=== PATIENT | female | born 1940 | race Caucasian/White ===

== ENCOUNTER → 2024-09-24 14:10 | Outpatient (REF) | payer MEDICARE, SELFPAY | LOC: HWRAD 14:10 | PROVIDERS: ATTENDING PHYSICIAN Family Medicine | DX: M85.88 Other specified disorders of bone density and structure, other site (principal); M85.89 Other specified disorders of bone density and structure, multiple sites | CPT/HCPCS: 77080 ==

== ENCOUNTER 2025-02-26 00:55 | Inpatient (IN) | payer MEDICARE, SELFPAY ==
[2025-02-25] VITALS (7 sets, daily range): BP systolic 103–122; BP diastolic 48–62; BMI 22.6
--- NOTE | 2025-02-25 17:39 | ED.GENMED ---
ED Provider Triage
<Violet Aguirre PA-C - Last Filed: 02/25/25 17:41>
-
Patient seen by provider in Triage?: Seen in Triage
Attestation: A medical screening examination has been initiated by a qualified medical provider. Based on the assessment performed at this time, it has been determined that an emergent medical condition may exist and the patient has been informed
that further medical evaluation and possible additional diagnostic testing may be needed.
HPI: 84yoF here with n/v and abd pain. Also more weak than normal. Grandson reports coffee ground emesis. Tried ODT Zofran without relief. Hx of liver cancer. Follows with [facility]. On Keytruda.
GENERAL: Alert , in no apparent distress
EYE: No visual abnormalities.
NECK: Trachea midline
ENT: No visible abnormalities.
LUNGS: No acute respiratory distress
NEUROLOGICAL: Alert and oriented
SKIN: Skin intact. No visible changes.
MUSCULOSKELETAL: Moving extremities normally
PSYCH: Normal and appropriate interaction.
This is a medical evaluation conducted in person to initiate diagnostic evaluation and provide initial therapeutics. Please see further documentation by the treating clinician.
Basic labs ordered from triage. She has a port that will need to be accessed. Will defer CT from triage as she will be unable to tolerate PO contrast without IV antiemetics.
History of Present Illness
<Violet Aguirre PA-C - Last Filed: 02/25/25 17:41>
General
Chief Complaint: Abdominal Symptoms
Time Seen by Provider: 02/25/25 18:07
<Arturo Magana MD - Last Filed: 02/25/25 22:48>
General
Source: patient and family
Exam Limitations: none
Nursing documentation reviewed up to this point in time: agreed with
History of Present Illness
History of Present Illness:
84-year-old female with past medical history of metastatic breast cancer with mets to the liver presents to the emergency department with her daughter for evaluation of abdominal pain with nausea and vomiting. Patient reports that she has chronic
pain related to her liver metastasis that over the past few days has gotten worse. Since Tuesday she has had severe nausea and has had multiple episodes of nonbloody vomiting. Denies any diarrhea or constipation. She denies any fever or chills.
She denies headache or neck pain. She follows at [facility] for cancer treatment.
Review of Systems
<Arturo Magana MD - Last Filed: 02/25/25 22:48>
Review of Systems
All Other Systems: ROS reviewed and negative except as documented in HPI and ROS
Constitutional: Denies fever
Respiratory: Denies trouble breathing
Cardiac: Denies chest pain
ABD/GI: Reports abdominal pain, nausea and vomiting; Denies diarrhea
: Denies flank pain
Musculoskeletal: Denies neck pain or back pain
Neurological: Denies dizzy or headache
Phy Exam
<Arturo Magana MD - Last Filed: 02/25/25 22:48>
Physical Exam
Physical Exam:
General: Awake, alert, oriented x3; chronically ill-appearing but in no acute distress
Head: Normocephalic, atraumatic
Eyes: Conjunctiva normal, sclera anicteric
Throat: Airway intact, dry mucous membranes
Neck: Trachea midline, supple without meningismus
Lungs: Clear to auscultation bilaterally, no wheezing, rales, rhonchi
Heart: Regular rate and rhythm, no murmurs, gallops, or rubs
Abd: Soft, non distended, tender to palpation right upper abdomen and epigastric
Neuro: No gross deficits
Skin: Warm and dry, no jaundice noted
Extremities: Warm and well-perfused
Scores
<Arturo Magana MD - Last Filed: 02/25/25 22:48>
Heart Failure Risk
Heart Failure Risk Score: Not Applicable
Heart Score for Chest Pain Patients
STEMI patient?: Not applicable
Withdrawal Assessment of Alcohol
Withdrawal Assessment Completed?: Not applicable
Course
<Violet Aguirre PA-C - Last Filed: 02/25/25 17:41>
Orders/Labs/Results
Orders:
Orders
02/25/25 17:39
Complete Blood Count/With Diff Urgent
Comprehensive Metabolic Panel Urgent
Lactate Level [Lactic Acid] Q4H
Lipase Urgent
02/25/25 18:16
CT Abd/pelvis W Iv Cont Urgent
Comment:
Reason For Exam: abd pain, nausea, vomiting
0.9% Sodium Chloride 1000 ml [Nss] 1,000 ml IV BOLUS
02/25/25 18:20
Morphine Sulfate 4 mg IV NOW STA
Ondansetron Injectable [Zofran] 4 mg IV NOW STA
02/25/25 18:50
CR Chest Portable - 1 View Urgent
Comment:
Reason For Exam: port check
Reason Study Needs to be Portable: Unable to Transport
02/25/25 22:35
HYDROmorphone [Dilaudid] 0.5 mg IV NOW STA
02/25/25 22:36
0.9% Sodium Chloride 1000 ml [Nss] 1,000 ml IV BOLUS
Abnormal Lab Results
02/25/25 02/25/25
17:39 19:53
WBC 13.4 H 10^3/uL
(4.8-10.8)
RBC 2.74 L 10^6/uL
(4.20-5.40)
Hgb 8.1 L g/dL
(12.0-16.0)
Hct 24.9 L %
(37.0-47.0)
MCHC 32.5 L g/dL
(33.0-37.0)
RDW 22.4 H %
(11.5-14.5)
Abs Immat Gran (auto) 0.4 H 10^3/uL
(0-0.05)
Absolute Neuts (auto) 11.2 H 10^3/uL
(1.4-6.5)
Absolute Lymphs (auto) 0.6 L 10^3/uL
(1.2-3.4)
Absolute Monos (auto) 1.2 H 10^3/uL
(0.1-0.6)
Immature Gran % 2.8 H %
(0-0.5)
Neutrophils % 83.6 H %
(42.2-75.2)
Lymphocytes % 4.2 L %
(20.5-51.1)
Carbon Dioxide 20 L mmol/L
(22-30)
BUN 35 H mg/dl
(7-17)
Creatinine 1.6 H mg/dL
(0.6-1.0)
Glucose 410 H mg/dl
(70-99)
Calcium 8.2 L mg/dl
(8.4-10.2)
AST 77 H U/L
(14-36)
Alkaline Phosphatase 518 H U/L
(38-126)
Total Protein 5.3 L g/dl
(6.3-8.2)
Albumin 2.9 L g/dl
(3.5-5.0)
Lipase 638 H U/L
(23-300)
POC Glucose 405 H mg/dl
(70-99)
02/25/25 17:39
02/25/25 17:39
Vital Signs
Initial and Last Documented VS:
Initial Vital Signs
Temp Pulse Resp BP Pulse Ox
36.4 C 99 20 106/51 97
02/25/25 17:25 02/25/25 17:25 02/25/25 17:25 02/25/25 17:25 02/25/25 17:25
Last Documented Vital Signs
Temp Pulse Resp BP Pulse Ox
36.4 C 90 16 112/62 91
02/25/25 17:25 02/25/25 21:45 02/25/25 21:45 02/25/25 21:20 02/25/25 20:30
<Arturo Magana MD - Last Filed: 02/25/25 22:48>
Orders/Labs/Results
Orders:
Orders
02/25/25 17:39
Complete Blood Count/With Diff Urgent
Comprehensive Metabolic Panel Urgent
Lactate Level [Lactic Acid] Q4H
Lipase Urgent
02/25/25 18:16
CT Abd/pelvis W Iv Cont Urgent
Comment:
Reason For Exam: abd pain, nausea, vomiting
0.9% Sodium Chloride 1000 ml [Nss] 1,000 ml IV BOLUS
02/25/25 18:20
Morphine Sulfate 4 mg IV NOW STA
Ondansetron Injectable [Zofran] 4 mg IV NOW STA
02/25/25 18:50
CR Chest Portable - 1 View Urgent
Comment:
Reason For Exam: port check
Reason Study Needs to be Portable: Unable to Transport
02/25/25 22:35
HYDROmorphone [Dilaudid] 0.5 mg IV NOW STA
02/25/25 22:36
0.9% Sodium Chloride 1000 ml [Nss] 1,000 ml IV BOLUS
Abnormal Lab Results
02/25/25 02/25/25
17:39 19:53
WBC 13.4 H 10^3/uL
(4.8-10.8)
RBC 2.74 L 10^6/uL
(4.20-5.40)
Hgb 8.1 L g/dL
(12.0-16.0)
Hct 24.9 L %
(37.0-47.0)
MCHC 32.5 L g/dL
(33.0-37.0)
RDW 22.4 H %
(11.5-14.5)
Abs Immat Gran (auto) 0.4 H 10^3/uL
(0-0.05)
Absolute Neuts (auto) 11.2 H 10^3/uL
(1.4-6.5)
Absolute Lymphs (auto) 0.6 L 10^3/uL
(1.2-3.4)
Absolute Monos (auto) 1.2 H 10^3/uL
(0.1-0.6)
Immature Gran % 2.8 H %
(0-0.5)
Neutrophils % 83.6 H %
(42.2-75.2)
Lymphocytes % 4.2 L %
(20.5-51.1)
Carbon Dioxide 20 L mmol/L
(22-30)
BUN 35 H mg/dl
(7-17)
Creatinine 1.6 H mg/dL
(0.6-1.0)
Glucose 410 H mg/dl
(70-99)
Calcium 8.2 L mg/dl
(8.4-10.2)
AST 77 H U/L
(14-36)
Alkaline Phosphatase 518 H U/L
(38-126)
Total Protein 5.3 L g/dl
(6.3-8.2)
Albumin 2.9 L g/dl
(3.5-5.0)
Lipase 638 H U/L
(23-300)
POC Glucose 405 H mg/dl
(70-99)
02/25/25 17:39
02/25/25 17:39
Vital Signs
Initial and Last Documented VS:
Initial Vital Signs
Temp Pulse Resp BP Pulse Ox
36.4 C 99 20 106/51 97
02/25/25 17:25 02/25/25 17:25 02/25/25 17:25 02/25/25 17:25 02/25/25 17:25
Last Documented Vital Signs
Temp Pulse Resp BP Pulse Ox
36.4 C 90 16 112/62 91
02/25/25 17:25 02/25/25 21:45 02/25/25 21:45 02/25/25 21:20 02/25/25 20:30
<Arturo Magana MD - Last Filed: 02/25/25 22:48>
MDM/Problems Addressed
Differential Diagnosis Includes:
Bowel obstruction, cancer related symptoms, pancreatitis, biliary obstruction
MDM/Problems Addressed:
84-year-old female with history as noted presents for evaluation of abdominal pain and nausea/vomiting. Vitals and exam as above. Labs were sent off including a CBC which shows stable anemia (hemoglobin is actually 0.4 on 02/16 when she received a
transfusion thereafter), mild leukocytosis. CMP shows MIAN with a creatinine of 1.6�I was able to review labs drawn 02/16 at [facility] using patient portal that daughter was able to pull up at bedside and her creatinine at that time was 1.14.
Bilirubin normal, AST marginally elevated. Lipase elevated. She is hyperglycemic with glucose 410. She does have mild acidosis but no anion gap likely GI losses. Not consistent with DKA. Will give some subcutaneous insulin. Awaiting CT.
CT shows diffuse metastatic disease. She also has some pancreatic duct dilation and either pancreatic mass or enlarged local lymph node. Suspect there is likely some element of acute pancreatitis causing symptoms as well as poorly controlled
cancer related pain. Will admit for continued hydration, symptom control. I did speak to patient and family about consideration of palliative care and hospice�they seemed open to discussion and likely would benefit from consultation. Discussed
case with hospitalist for admission.
Chronic conditions affecting care:
Metastatic cancer
<Violet Aguirre PA-C - Last Filed: 02/25/25 17:41>
*Pulse Oximetry
SaO2: 97
Oxygen Mode of Delivery: Room air
<Arturo Magana MD - Last Filed: 02/25/25 22:48>
*Radiology
Radiology exam reviewed: radiology read reviewed
*Pulse Oximetry
Patient hypoxic: no (97%)
*Critical Care Note
Total Time (30-74mins, 75-104mins- exclusive of procedures): Not Applicable
Data Reviewed
Review of Other/Old Records Reveals: Labs and Records
Source: patient and records
<Arturo Magana MD - Last Filed: 02/25/25 22:48>
Patient Management
Discussion with other providers: Hospitalist (Discussed with hospitalist)
Escalation/DeEscalation of care consider admission/obs:
Admission indicated
ED Attending Note
<Violet Aguirre PA-C - Last Filed: 02/25/25 17:41>
-
Portions of this chart may have been created with voice recognition software.� Occasional wrong word or��sound alike� substitutions may have occurred due to the inherent limitations of voice recognition software.
Discharge Plan
Departure
Patient Disposition: Admit
Date of Disposition: 02/25/25
Time of Disposition: 22:47
Admit to doctor: Octavio
Presentation/result/management discussed w/ accepting MD/DO: Hospitalist
Discharge Problem:
Pancreatitis, Metastatic cancer, Dehydration, Hyperglycemia
Referrals:
Marcelino Gee MD [Family Provider, Family Practice]
Interventions
Interventions:
*Risk Screen - Suicide Last Done: 02/25/25 21:58
*General Assessment Last Done: 02/25/25 21:58
*Neglect/Abuse Screening Last Done: 02/25/25 21:58
*ED- Fall Risk Assessment Last Done: 02/25/25 21:58
*ED COVID-19 Vaccine History Last Done: 02/25/25 21:58
CR-Gubuxz-Hrjsnzfjvl Assessment Last Done: 02/25/25 21:58
Discharge Date and Time
Print Language: UZBEK
[2025-02-25 17:55] LABS: Hematocrit 24.9 % (37.0-47.0); Hemoglobin 8.1 g/dL (12.0-16.0); Mean Corp Hgb Conc. 32.5 g/dL (33.0-37.0); Mean Corpuscular Volume 90.9 fL (81.0-99.0); Nucleated Red Blood Cells % 0.3 %; Platelet Count 149 10^3/uL (130-400); Red Cell Dist. Width 22.4 % (11.5-14.5)
[2025-02-25 18:02] LABS: ALT (SGPT) 17 U/L (0-35); AST (SGOT) 77 U/L (14-36); Albumin 2.9 g/dl (3.5-5.0); Alkaline Phosphatase 518 U/L (38-126); Blood Urea Nitrogen 35 mg/dl (7-17); Calcium 8.2 mg/dl (8.4-10.2); Carbon Dioxide 20 mmol/L (22-30); Chloride 104 mmol/L (98-107); Glucose 410 mg/dl (70-99); Potassium 3.5 mmol/L (3.5-5.1); Sodium 136 mmol/L (135-145); Total Protein 5.3 g/dl (6.3-8.2); eGFR 32.00
[2025-02-25 18:03] LABS: Lipase 638 U/L (23-300)
[2025-02-25 18:26] LABS: Anisocytosis 2+; Basophilic Stippling 1+; Hypochromasia 1+; Macrocytosis 1+; Microcytosis 1+; Normal RBC Morphology No; Polychromasia 1+
[2025-02-25] MEDS: ZOFRAN 4 MG IV (18:35)
[2025-02-25] MEDS: MORPHINE SULFATE 4 MG IV (18:35)
[2025-02-25] MEDS: NSS 1000 IV ×2 (18:37→22:55)
[2025-02-25 19:55] LABS: Glucose - Point of Care 405 mg/dl (70-99)
--- NOTE | 2025-02-25 22:45 | HPS.HSE ---
Addendum entered and electronically signed by Samy Cunningham DO 02/26/25 00:26:
Patient seen and examined independently. Agree with findings and plan as set forth by NAVEEN Barroso.
Patient is an 84y F with H significant for metastatic breast cancer and DM-II who presents to ED complaining of N/V and abdominal pain. Patient with significant decline in the past few weeks. Currently on treatment with Keytruda / followed at
[facility].
CT scan done in the ED this evening shows widespread metastatic disease. No prior imaging available for comparison.
Ass:
Abdominal Pain, N/V
Metastatic Breast Cancer
DM-II
Plan:
Admit for further evaluation and treatment.
Extensive discussion regarding plan of care with patient / family by NAVEEN.
Comfort Care / Hospice is desired.
Formal Hospice consult in the AM with goal for eventual home Hospice if appropriate,.
Comfort care measures as an inpatient for now.
Original Note:
Family Physician
-
Family Physician: Marcelino Gee
Chief Complaint
-
nausea, vomiting and abdominal pain
History of Present Illness
Patient is a 84-year-old female with past medical history significant for metastatic breast cancer and DM-II who presented to [facility] ED for evaluation of nausea, vomiting and abdominal pain. Patient grandson and POA present and primary caregiver who
assisted with HPI. They report recent decline in past week to few days of increased weakness, nausea, vomiting and abdominal pain. Patient follows with [facility] and recent treatment with Keytruda. Patient also recently requiring blood
transfusion. Denies recent fever, chills, cough, shortness of breath, chest pain, constipation, diarrhea or urinary symptoms.
Medical History
Past Medical History
Past Medical History: Reports Other
Additional Past Medical History:
DM-II
metastatic breast cancer
Past Surgical History: Reports Other
Additional Past Surgical History:
appendectomy
myomectomy
tonsillectomy
D&C
Social History
Unable to obtain full social history at this time due to: Patient Non-verbal
Family History
Family History: Not pertinent
Allergies / Home Medications
Allergies reflects when Allergies were last updated in [facility].
Home Medications with original date entered in [facility]
Allergy/Medication List:
Allergies
Allergy/AdvReac Type Severity Reaction Status Date / Time
clams Allergy Unknown Verified 02/25/25 17:25
Home Medications
dapagliflozin propanediol 10 mg tablet (Farxiga) 10 mg PO DAILY 02/26/25
metformin 500 mg tablet 1,000 mg PO BID 02/26/25
Review of Systems
-
History Source: Patient and Family
Constitutional: Denies Fever or Chills
EENT: Denies Sore Throat
Respiratory: Denies Cough or Trouble Breathing
Cardiac: Denies Chest Pain
Abdomen/GI: Reports Abdominal Pain, Nausea and Vomiting; Denies Diarrhea
: Reports No Symptoms
Musculoskeletal: Reports No Symptoms
Skin: Reports Rash (bilateral chest )
Physical Exam
Vital Signs
Vital Signs
Temp Pulse Resp BP Pulse Ox
97.5 F 90 16 112/62 91
02/25/25 17:25 02/25/25 21:45 02/25/25 21:45 02/25/25 21:20 02/25/25 20:30
Physical Exam
General: No Apparent Distress and Appears Chronically Ill
HEENT: NormoCephalic and Atraumatic
Respiratory: Clear and Non Labored Respirations
Cardiac: S1/S2 and Regular Rhythm; No Murmur, Rub or Gallop
Breast: Skin Changes (bilateral rash present )
GI: Soft, Non Tender, Non Distended and Normal Bowel Sounds
Rectal: Deferred by Provider
Genito-urinary: Deferred by me
Musculoskeletal: No Clubbing, No Cyanosis and No Edema
Skin: Warm, Rash (bilateral chest ) and IV/Catheter Site (LCW port )
Neuro: Sedated
Psych: Calm
Laboratory Results
-
02/25/25 17:39
02/25/25 17:39
Laboratory Results
Lactic Acid Cancelled 02/25/25 21:30
Total Bilirubin 1.3 mg/dl (0.2-1.3) 02/25/25 17:39
AST 77 U/L (14-36) H 02/25/25 17:39
ALT 17 U/L (0-35) 02/25/25 17:39
Alkaline Phosphatase 518 U/L (38-126) H 02/25/25 17:39
Lipase 638 U/L (23-300) H 02/25/25 17:39
Data Reviewed
-
CT Scan: Report Reviewed by me (Abd/Pel: No prior CT imaging of the abdomen or pelvis is currently available for direct comparison. Multiple low-attenuation liver lesions presumably representing liver metastases. Ill-defined soft tissue attenuation
at the anterior margin of the pancreatic head and neck for which considerations inc)
Lab Data: Labs Reviewed by me (WBC 13.4, hgb 8.1, hct 24.9, Neut 83.6, BUN 35, Creat 1.6, eGFR 32.00, AST 77, ALT 17, Alk Phos 518, Lipase 638)
Impression/Plan
-
IMPRESSION/PLAN:
#metastatic breast cancer
WBC 13.4, hgb 8.1, hct 24.9, Neut 83.6, BUN 35, Creat 1.6, eGFR 32.00, AST 77, ALT 17, Alk Phos 518, Lipase 638
CXR: Left Port-A-Cath with the catheter tip at the cavoatrial junction.
Hazy bibasilar opacities suggesting atelectasis and/or small layering pleural fluid.
Abd/Pel CT: No prior CT imaging of the abdomen or pelvis is currently available for direct comparison. Multiple low-attenuation liver lesions presumably representing liver metastases. Ill-defined soft tissue
attenuation at the anterior margin of the pancreatic head and neck for which considerations include a pancreatic mass, peripancreatic/periportal lymph node, or metastatic deposit. Recommend
direct correlation with previous outside imaging.
Widespread osseous metastatic disease. Pathologic compression fractures in the thoracolumbar spine.
Right adrenal gland mass suspicious for an adrenal metastasis.
Stents in the common bile duct and accessory hepatic duct. Significant dilatation of the main pancreatic duct.
Cholelithiasis.
Moderate bilateral hydronephrosis.
Mild right posterolateral urinary bladder wall thickening, nonspecific.
Mild abdominopelvic ascites.
Moderate bilateral pleural effusions with bilateral lower lobe compressive atelectasis.
- Admit to med/surg
- comfort care orders
- Hospice consult
#DM -II
patient has not had daily medications in sometime
family seeking comfort care
Code status: DNR
DVT prophylaxis: n/a
[2025-02-25] MEDS: DILAUDID 0.5 MG IV (22:56)
[2025-02-25] MEDS: NOVOLOG vial 5 UNITS SC (22:56)
[2025-02-25 22:58] LABS: Glucose - Point of Care 381 mg/dl (70-99)
--- NOTE | 2025-02-26 00:04 | EDRN ---
Family member to contact for any concerns is fatimah Raygoza grandson at [phone].
[2025-02-26] MEDS: MORPHINE SULFATE 2 MG IV ×7 (05:39→23:36)
[2025-02-26 07:14] VITALS: BP 107/57
--- NOTE | 2025-02-26 08:55 | CM ---
Addendum entered by Di Garzon 02/26/25 16:22:
OOH DNR signed and placed with discharge paperwork
Addendum entered by Di Garzon 02/26/25 12:13:
Hospice referral placed in [facility]. Per Gabi, equipment will be delivered this afternoon. Transport form completed. Ambulance transport scheduled for 430 pm. I informed family member at bedside.
Addendum entered by Di Garzon 02/26/25 10:35:
Per Courtney JI RN, pt's spouse . Rickey Raygoza [phone] is photoresist contact printer. Information passed alone to Gabi from Hospice.
Addendum entered by Di Garzon 02/26/25 09:00:
Spoke to Gabi from hospice, she is aware of pt and will continue to attempt to reach family.
Original Note:
Attempted to reach pt's to discuss hospice but voicemail full, unable to leave a message. Pt sleeping. ED RN made aware, will let me know if family comes in.
--- NOTE | 2025-02-26 11:46 | HOSPNOTE ---
Addendum entered by Ella Trimble RN 02/26/25 17:13:
Rickey had last minute reservations about patient coming home tonight and not being admitted onto hospice until the morning as patient has needed 2 doses of morphine this afternoon which is more than she had required this morning when decision was
made to bring her home today. Notified Primary RN and CM of rickeys reservations. Plan is to cancel discharge and keep patient in the ED until tomorrow morning. If patient lives to the morning, transport is being requested for 9 am and hospice
will be able to meet patient and family at the home. Family will also pickling machine operator medications at [facility] before patients arrival home as well. Rickey plans to visit this evening with GF and 8 year old daughter incase patient does not survive
through the night. CM and Primary RN updated. Hospice will continue to follow and support.
Original Note:
Patient will be going home later this afternoon. Equipment was ordered and will be delivered this afternoon. CM updated with plan of care. Transport will be needed.
--- NOTE | 2025-02-26 13:21 | W.PN.HOSP.TC ---
Addendum entered and electronically signed by David Morales MD 02/27/25 08:30:
Discussed with marine engine machinist apprentice, patient's grandson cannot accept on 02/26/2025.While on comfort measures patient pronounced on 02/27/2025.
Original Note:
Today's Communication/Plan
-
Monitor vital signs see plan
Plan for home hospice today
Discussed with family
Time of discharge 37 minutes
Assessment / Plan
Assessment / Plan
General: No Apparent Distress and Appears Chronically Ill
HEENT: NormoCephalic and Atraumatic
Respiratory: Clear and Non Labored Respirations
Cardiac: S1/S2 and Regular Rhythm; No Murmur, Rub or Gallop
Breast: Skin Changes (bilateral rash present )
GI: Soft, Non Tender, Non Distended and Normal Bowel Sounds
Musculoskeletal: No Clubbing, No Cyanosis and No Edema
Skin: Warm, Rash (bilateral chest ) and IV/Catheter Site (LCW port )
Neuro: Sedated
Psych: Calm
metastatic breast cancer
WBC 13.4, hgb 8.1, hct 24.9, Neut 83.6, BUN 35, Creat 1.6, eGFR 32.00, AST 77, ALT 17, Alk Phos 518, Lipase 638
CXR: Left Port-A-Cath with the catheter tip at the cavoatrial junction.
Hazy bibasilar opacities suggesting atelectasis and/or small layering pleural fluid.
Abd/Pel CT: No prior CT imaging of the abdomen or pelvis is currently available for direct comparison. Multiple low-attenuation liver lesions presumably representing liver metastases. Ill-defined soft tissue
attenuation at the anterior margin of the pancreatic head and neck for which considerations include a pancreatic mass, peripancreatic/periportal lymph node, or metastatic deposit. Recommend
direct correlation with previous outside imaging.
Widespread osseous metastatic disease. Pathologic compression fractures in the thoracolumbar spine.
Right adrenal gland mass suspicious for an adrenal metastasis.
Stents in the common bile duct and accessory hepatic duct. Significant dilatation of the main pancreatic duct.
Cholelithiasis.
Moderate bilateral hydronephrosis.
Mild right posterolateral urinary bladder wall thickening, nonspecific.
Mild abdominopelvic ascites.
Moderate bilateral pleural effusions with bilateral lower lobe compressive atelectasis.
From imaging appears prognosis is very poor given metastatic disease. Family agreeable for comfort care/hospice
Currently on comfort care, morphine
Discussed with hospice, plan for home hospice today 02/26. Discussed with family over the phone
Renal insufficiency, unsure if has underlying CKD
Elevated LFTs likely secondary to metastatic disease
Suspect component of pancreatitis
#DM -II
patient has not had daily medications in sometime
family seeking comfort care
Code status: DNR
DVT prophylaxis: n/a
Anticipated Discharge: Today
Subjective/Interval History
-
Date of Service: February 26, 2025
lethargic
Objective Data
-
Vital Signs:
Vital Signs
Temp Pulse Resp BP Pulse Ox
97.9 F 103 16 107/57 89
02/26/25 07:14 02/26/25 07:14 02/26/25 07:14 02/26/25 07:14 02/26/25 07:14
--- NOTE | 2025-02-26 13:42 | W.DCSUMMARY ---
Discharge Summary
Discharge Data
Date of Admission: 02/26/25
Date of Discharge: 02/27/25
-
Pending Results: No
Hospital Course
Discharge diagnosis:
Metastatic breast cancer
Liver metastases
Bone metastases
Renal insufficiency
Elevated LFTs
Suspected pancreatitis
Diabetes mellitus
84-year-old female with past medical history of metastatic breast cancer, diabetes mellitus came to the hospital with lethargy, nausea and vomiting. CT scan done on admission showed metastatic disease. Given patient comorbidities and worsening
cancer, family decided on comfort measures with possible transition to hospice. Patient was then admitted in the hospital and was seen by hospice. Patient was accepted for home hospice to be discharged on 02/27/2025 however prior to that patient
while on comfort measures.
Discharge Plan
-
Patient Disposition:
Date/Time
Date/Time: 02/27/25 02:30
Discharge Date and Time
Discharge Date/Time: 02/27/25 05:22
Print Language: IRISH
--- NOTE | 2025-02-26 18:09 | VATNOTE ---
02/26 - patient initially scheduled for discharge home w/ hospice. RN requested for port to be deaccessed upon discharge. Rickey reported change of plans when transport arrived to take patient home, and now patient being admitted. Port was
reaccessed on 02/26 for venous access for pain medication regimen
[2025-02-26 19:14] VITALS: BMI 22.6
[2025-02-26 19:57] VITALS: BMI 21.5
[2025-02-26 19:58] VITALS: BP 102/50
[2025-02-26] MEDS: ROBINUL 0.2 MG IV (21:12)
--- NOTE | 2025-02-27 03:38 | PTCARENOTE ---
Pt arrived from ED to the unit on stretcher. Pt pulled over to the bed. Pt is unresponsive, non-verbal & arouses to tactile/movement. See Nursing Shift Assessment. Pt is on comfort measures for admission, to be transferred tomorrow morning via
ambulance back to home for at home hospice. Bed in lowest position & locked, call kumar within reach. Family in the room, notified on plan of care, oriented to unit & education was provided about hospice & comfort measures. Family has no further
questions at this time, pt medicated for dyspnea. See MAR
--- NOTE | 2025-02-27 03:57 | PTCARENOTE ---
Patient found unresponsive, no breath sounds and without a pulse. Pt DNR & on comfort measures. [employer] notified & pronounced time of at 0230. GOL notified. Per [facility] staff, Pt does not meet criteria due to age. Family present and notified to take
patient belongings.
--- NOTE | 2025-02-27 06:40 | W.PN.DEATH ---
Pronouncement of
-
Called to see patient to pronounce.
No spontaneous heart tones or respirations noted.
Patient not responsive to verbal stimuli.
Patient is pronounced .
Time of : 02:30
Date of : 02/27/25
Family Notified: Yes
== END 2025-02-27 02:30 | disposition expired | DRG 435 ==
LOC: 2 NORTH 00:55
PROVIDERS: Emergency Medicine; ADMITTING PHYSICIAN Hospitalist; ATTENDING PHYSICIAN Internal Medicine; EMERGENCY PHYSICIAN Emergency Medicine; FAMILY PHYSICIAN Family Medicine
DX: C78.7 Secondary malignant neoplasm of liver and intrahepatic bile duct (principal); K85.90 Acute pancreatitis without necrosis or infection, unspecified; C79.51 Secondary malignant neoplasm of bone; J98.11 Atelectasis; R18.8 Other ascites; J90 Pleural effusion, not elsewhere classified; N13.30 Unspecified hydronephrosis; C79.71 Secondary malignant neoplasm of right adrenal gland; K92.0 Hematemesis; E87.20 Acidosis, unspecified; N17.9 Acute kidney failure, unspecified; M84.58XA Pathological fracture in neoplastic disease, other specified site, initial encounter for fracture; C50.919 Malignant neoplasm of unspecified site of unspecified female breast; Z51.5 Encounter for palliative care; G89.3 Neoplasm related pain (acute) (chronic); D63.0 Anemia in neoplastic disease; R74.01 Elevation of levels of liver transaminase levels; K80.20 Calculus of gallbladder without cholecystitis without obstruction; E86.0 Dehydration; E11.65 Type 2 diabetes mellitus with hyperglycemia; Z66 Do not resuscitate; Z91.013 Allergy to seafood; Z79.84 Long term (current) use of oral hypoglycemic drugs
CPT/HCPCS: 71045; 74177; 80053; 82962; 83605; 83690; 85025; Q9967